=== PATIENT | male | born 1965 | race Caucasian/White ===

== ENCOUNTER 2019-09-29 19:15 | Emergency (ER) | payer BC ==
--- NOTE | 2019-09-29 19:24 | Emergency Department Record ---
History of Present Illness - General Stated Complaint: FALL INJURY Time Seen by Provider: 09/29/19 19:17 Source: Patient Mode of Arrival: Wheelchair Limitations: No limitations - History of Present Illness Initial Comments: 54 yo male presents to ED for evaluation following a fall injury that occurred approximately 90 minutes ago. Patient reports that he was approximately 20 feet in the air climbing to his deer stand when a branch broke, patient fell from that height landing on "on my face". Patient denies LOC, denies focal numbness, tingling, or extremity weakness symptoms. Patient denies use of anticoagulation medications at his baseline. Patient reports pain to the left knee and right elbow, able to weight bear following his injury. MD Complaint: Fall Onset/Timin -: Minutes(s) Fall From: From height (distance) When Fall Occurred: 1-3 hours [employer] Fall Witnessed: No Place Fall Occurred: Other (Outdoors) Loss of Consciousness: None Prolonged Down Time?: No Symptoms Prior to Fall: None Severity: Moderate Quality: Aching Associated Symptoms: Denies - Rachel Coma Scale Eye Response: (4) Open spontaneously Motor Response: (6) Obeys commands Verbal Response: (5) Oriented Sayre Total: 15 - Related Data Home Medications Medication Instructions Recorded Confirmed Last Taken Atorvastatin Calcium [Lipitor] 20 mg PO DAILY 09/29/19 09/29/19 09/28/19 Metformin HCl 1 tab PO DAILY 09/29/19 09/29/19 09/29/19 Allergies Allergy/AdvReac Type Severity Reaction Status Date / Time No Known Drug Allergies Allergy Verified 09/29/19 19:19 Review of Systems Constitutional: Denies: Chills, Fever, Malaise, Night sweats Eyes: Denies: Eye discharge, Eye pain ENT: Denies: Congestion, Ear pain, Epistaxis Respiratory: Denies: Cough, Dyspnea Cardiovascular: Denies: Chest pain, Dyspnea on exertion Endocrine: Denies: Fatigue, Heat or cold intolerance Gastrointestinal: Denies: Abdominal pain, Nausea, Vomiting Genitourinary: Denies: Incontinence, Retention Musculoskeletal: Reports: Arthralgia. Denies: Back pain, Gout, Joint swelling Skin: Denies: Bruising, Change in color Neurological: Denies: Abnormal gait, Confusion, Headache, Seizure Psychiatric: Denies: Anxiety Hematological/Lymphatic: Denies: Anemia, Blood Clots Physical Exam - General General Appearance: Alert, Oriented x3, Cooperative, Moderate distress Limitations: No limitations - Head Head exam: Atraumatic, Normocephalic, Normal inspection Head exam detail: negative: Abrasion, Contusion, Norris's sign, General tenderness, Hematoma, Laceration - Eye Eye exam: Normal appearance. negative: Conjunctival injection, Periorbital swelling, Periorbital tenderness, Scleral icterus - ENT Ear exam: negative: Auricular hematoma, Auricular trauma Nasal Exam: negative: Active bleeding, Discharge, Dried blood, Foreign body Mouth exam: negative: Drooling, Laceration, Muffled voice, Tongue elevation - Neck Neck exam: Normal inspection. negative: Meningismus, Tenderness - Respiratory Respiratory exam: Normal lung sounds bilaterally. negative: Rales, Respiratory distress, Rhonchi, Stridor - Cardiovascular Cardiovascular Exam: Regular rate, Normal rhythm, Normal heart sounds Peripheral Pulses: 3+: Radial (R), Radial (L), Dorsalis Pedis (R), Dorsalis Pedis (L) - GI/Abdominal GI/Abdominal exam: Soft. negative: Rebound, Rigid, Tenderness - Rectal Rectal exam: Deferred - exam: Deferred - Extremities Extremities exam: Tenderness, Other (TTP to the distal medial left femur, no effusion present, strong DPP bilaterally. Pain over the right elbow, FROM on examination.). negative: Calf tenderness, Pedal edema - Back Back exam: Denies: CVA tenderness (R), CVA tenderness (L) - Neurological Neurological exam: Alert, Normal gait, Oriented X3 - Psychiatric Psychiatric exam: Normal affect, Normal mood - Skin Skin exam: Normal color. negative: Abrasion Type of lesion: negative: abrasion Course - Reevaluation(s) Reevaluation #1: 09/29/19 19:26 EKG: Sinus tachycardia 106 LAD, normal intervals No acute ST-T wave changes Reevaluation #2: 09/29/19 19:49 Laboratory studies were reviewed and appear grossly unremarkable for an acute process. Patient declined analgesia, currently in radiology for multiple imaging studies at this time. Reevaluation #3: 09/29/19 20:34 CT Brain: No acute traumatic injury CT Cervical Spine: No acute traumatic fracture or subluxation Thyroglossal duct cyst. CT Maxillo-facial bones: No acute traumatic injury identified Numerous dental caries, numerous absent teeth CT Chest/Abdomen/Pelvis: No acute traumatic injury Gallstones Left knee: No acute fracture identified Right elbow: No acute fracture Patient ambulated to the bathroom with steady gait, reports that he is feeling much better at this time. Patient and his were updated on all results, patient appears stable for discharge at this time. Medical Decision Making - Lab Data Result diagrams: 09/29/19 19:20 09/29/19 19:20 Disposition Disposition: Discharge Clinical Impression: Multiple contusions Fall from tree Qualifiers: Encounter type: initial encounter Qualified Code(s): W14.XXXA - Fall from tree, initial encounter Disposition: Home, Self-Care Condition: (2) Stable Instructions: Contusion in Adults (ED) Additional Instructions: Return to ED if your symptoms worsen or if you have any concerns. Ice, Ibuprofen as directed. Follow-up with your family doctor in 3-5 days as directed. Time of Disposition: 21:22 Quality - Quality Measures Quality Measures: N/A - Blood Pressure Screening Does Patient Have Any of the Following: No Blood Pressure Classification: Normal BP Reading Systolic Measurement: 105 Diastolic Measurement: 70 Screening for High Blood Pressure: < Normal BP, F/U Not Required > [G8783]
[2019-09-29 19:29] LABS: ABSOLUTE NEUTROPHIL COUNT 7.74; BASO % 0.2 % (0-6); EOS % 1.1 % (0-6); GRAN % 75.8 % (47-80); HEMATOCRIT 44.2 % (42.0-52.0); HEMOGLOBIN 14.6 gm/dl (14.0-18.0); MEAN CELL VOLUME 89.1 fl (81-97); MEAN CORPUSCULAR HEMOGLOBIN 29.4 pg (27-33); MEAN PLATELET VOLUME 9.6 fl (7.4-10.4); MONO % 6.9 % (0-9); PLATELET COUNT 263 K/uL (130-400); RED BLOOD COUNT 4.96 M/uL (4.40-5.70); RED CELL DISTRIBUTION WIDTH 12.9 % (11.5-14.5); WHITE BLOOD COUNT W/O DIFF 10.2 K/uL (4.2-12.2)
[2019-09-29 19:37] LABS: PROTHROMBIN TIME (PATIENT) 10.2 SECONDS (9.5-12.1)
[2019-09-29 19:41] LABS: BLOOD UREA NITROGEN 20 mg/dL (6-20); CREATININE 0.9 mg/dL (0.7-1.2); EST GLOMERULAR FILTRATION RATE > 60 mL/min
[2019-09-29 19:42] LABS: TOTAL PROTEIN 6.9 g/dL (6.6-8.7)
[2019-09-29 19:44] LABS: GLUCOSE,RANDOM 151 mg/dL (74-109)
[2019-09-29 19:47] LABS: ALBUMIN 4.8 g/dL (4.0-5.0); ALKALINE PHOSPHATASE 70 U/L (40-129); ALT/SGPT 14 U/L (<41); AST/SGOT 14 U/L (10.0-50.0)
[2019-09-29 19:48] LABS: ALB/GLOB RATIO 2.3 (1.1-1.8)
[2019-09-29 20:10] LABS: ABO GROUP O; RH TYPE POSITIVE
[2019-09-29 20:11] LABS: ANTIBODY SCREEN NEGATIVE (NEGATIVE)
--- NOTE | 2019-09-29 20:33 | CT SCAN REPORT ---
EXAMINATION: HEAD WO CONTRAST EXAM DATE: 09/29/2019 8:17 PM TECHNIQUE: Noncontrast axial images were obtained to the brain. INDICATION: fall from 20 feet COMPARISON: None. ENCOUNTER: Not applicable HAND DOMINANCE: Unknown FINDINGS: The brain parenchyma is unremarkable for age. No loss of hathaway-white matter differentiation or sulcal effacement to indicate acute infarction. No evidence of intracranial mass. The ventricles, sulci, and subarachnoid spaces are unremarkable for age. The basal cisterns are paten t and there is no midline shift or herniation. No intra-axial or extra-axial fluid collection. No evidence of intracranial hemorrhage. The paranasal sinuses, mastoid air cells, and orbits are unremarkable other than mild paranasal sinu s mucosal thickening. The calvarium is intact. IMPRESSION: 1. No CT evidence of intracranial hemorrhage or acute intracranial abnormality. Dictated by: BRAULIO OMALLEY MD on 09/29/2019 8:30 PM. .
--- NOTE | 2019-09-29 20:36 | CT SCAN REPORT ---
EXAMINATION: MAXILLOFACIAL WO CONTRAST EXAM DATE: 09/29/2019 8:17 PM TECHNIQUE: Routine CT of the maxillofacial region without contrast was obtained Sagittal and coronal 2-D reformats were made from source images. INDICATION: fall from 20 feet. ENCOUNTER: Initial COMPARISON: Concurrent CT the head FINDINGS: No fractures identified. No TMJ dislocation. There is mild ethmoid air cell mucosal thickening and maxillary sinus mucosal thickening. No air-flui d levels. Mastoid air cells and middle ear cavities are unremarkable. The orbits are unremarkable. Poor dentition is demonstrated with numerous dental caries and absent teeth. _ IMPRESSION: 1. No CT evidence of acute traumatic injury. No fracture. 2. Poor dentition is demonstrated with numerous dental caries and absent teeth. . Dictated by: BRAULIO OMALLEY MD on 09/29/2019 8:32 PM. .
--- NOTE | 2019-09-29 21:03 | CT SCAN REPORT ---
EXAMINATION: CT Chest, Abdomen, and Pelvis with Contrast EXAM DATE: 09/29/2019 8:17 PM TECHNIQUE: Spiral CT images were done from lung apices through the pelvis after injection of intraven ous contrast. Coronal and sagittal 2-D reconstructions were made from source images. IV Contrast: The type and amount of contrast are recorded in the medical record. INDICATION: fall from 20 feet COMPARISON: None. FINDINGS: Chest: The lung parenchyma is normal. No pneumothorax or pleural fluid. No evidence of mediastinal injury. N o fracture. Abdomen: Gallstones are noted in the gallbladder. The liver, spleen, pancreas, adrenals, and kidneys are bianca l. Peripelvic cysts incidentally noted bilaterally. No free fluid or free air. No evidence of bowel i njury. Pelvis: The pelvic organs are unremarkable. No free fluid or free air. No evidence of soft tissue injury. No pelvic fracture. IMPRESSION: 1. No acute abnormality. 2. Gallstones. Dictated by: Jonathan Leiva MD on 09/29/2019 8:47 PM. .
--- NOTE | 2019-09-29 21:07 | CT SCAN REPORT ---
EXAMINATION: CERVICAL SPINE WO CONTRAST EXAM DATE: 09/29/2019 8:17 PM TECHNIQUE: Without contrast spiral CT images were done from the foramen magnum to the upper thoracic spine. Sagittal and coronal 2-D reformats were made from source images. INDICATION: Neck pain. fall from 20 feet. COMPARISON: No similar comparison exam FINDINGS: Normal anatomic alignment of the cervical spine. The craniocervical junction is intact. Vertebral body heights are preserved without evidence of acute fracture. The paravertebral soft tissu es are unremarkable. Intervertebral disc heights are normal. Approximately 2 cm homogeneous cyst along the left anterior margin of the thyroid cartilage, compatib le with a thyroglossal duct cyst. IMPRESSION: 1. No evidence of acute fracture or malalignment. 2. Thyroglossal duct cyst. Dictated by: Adams Casas MD on 09/29/2019 8:53 PM. .
--- NOTE | 2019-09-29 21:17 | RADIOLOGY REPORT ---
EXAMINATION: Right Elbow EXAM DATE: 09/29/2019 8:32 PM INDICATION: fall from 20 feet ENCOUNTER: Initial FINDINGS: Mild degenerative changes. No fracture or other acute bone abnormality. Dictated by: Jonathan Leiva MD on 09/29/2019 9:08 PM. .
--- NOTE | 2019-09-29 21:21 | RADIOLOGY REPORT ---
EXAMINATION: Left Knee Complete, Four or More Views EXAM DATE: 09/29/2019 8:32 PM TECHNIQUE: Frontal, lateral, oblique and sunrise view INDICATION: knee pain, 20 ft. fall COMPARISON: None ENCOUNTER: Initial FINDINGS: No acute fracture is appreciated. There is mild medial joint compartment narrowing. Patella is not di slocated. No significant joint effusion. IMPRESSION: No acute fracture identified If patient is having difficulty bearing weight further evaluation with advanced imaging is suggested. Dictated by: Clarissa Castle MD on 09/29/2019 9:12 PM. .
== END 2019-09-29 21:46 | disposition home or self-care (01) ==
LOC: ER 19:15
DX: S80.02XA Contusion of left knee, initial encounter (principal); S50.01XA Contusion of right elbow, initial encounter; S70.12XA Contusion of left thigh, initial encounter; S00.93XA Contusion of unspecified part of head, initial encounter; S20.219A Contusion of unspecified front wall of thorax, initial encounter; S30.1XXA Contusion of abdominal wall, initial encounter; S10.93XA Contusion of unspecified part of neck, initial encounter; W14.XXXA Fall from tree, initial encounter; Y92.828 Other wilderness area as the place of occurrence of the external cause
CPT/HCPCS: 99285 ×2; 85025; 85610; 80053; 84484; 86900; 86901; 86850; 73080; 73564; 72125; 71260; 70450; 70486; 74177; 93005; 93010; Q9967; 72193; 74160